=== PATIENT | female | born 1965 | race Caucasian/White ===

== ENCOUNTER 2018-08-11 09:39 | Day surgery (SDC) | payer BC ==
[~2018-08-11] VITALS: Ht 160 cm; Wt 69.3 kg
[2018-08-11] VITALS (12 sets, daily range): BP systolic 119–163; BP diastolic 62–90; PULSE 68–80; RESP 14–20; Ht 160 cm; Wt 69.3 kg
--- NOTE | 2018-08-11 05:27 | HPN ---
Date/Time of Note Date/Time of Note DATE: 08/11/18 TIME: 05:27 Interval H&P Admission Note Pt. seen H&P reviewed: No system changes JUAN DANIEL CABALLERO MD Aug 11, 2018 05:27
--- NOTE | 2018-08-11 05:29 | OPR ---
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 Assistance was necessary as a result of the highly technical nature of this operation. When performing an open total shoulder replacement, it is critical to have a trained staff assistant who is an expert in handling the extremity and assisting the surgeon in tasks such as manipulation of the arm, protection of the neurovascular structures and positioning the implants. This assistance cannot be performed by a network operations center technician, as it is considered an integral part of the procedure and the staff assistant should be compensated for his time. PROCEDURE IN DETAIL: Following the administration of general anesthesia supplemented with a peripheral nerve block for postoperative pain control, the patient was examined under anesthesia. Examination of the right shoulder revealed that her range of motion was slightly restricted with a forward flexion of about 100 degrees and abduction of 90 degrees. The patient was then placed in the beach chair position. Sterile prep and drape was then undertaken. An extended deltopectoral incision was then carried t hrough the prior incision exposing the conjoined tendon and retracting it medially. The humeral component was then identified and the joint visualized significant synovitis was noted in the periphery and a small amount of fluid. A culture was obtained of both the fluid in the soft tissue around which appeared to be synovitic. The humeral liner had somewhere inferiorly. This was removed and a new 6 mm, constrained liner was then placed with solid position. The joint was thoroughly irrigated prior to this. It should be mentioned that prior to insertion of the new component, the glenoid was thoroughly investigated and no significant loosening or issues were noted with that portion of the joint. The arm was taken through full range of motion with no evident instability. The joint was then thoroughly irrigated, the deep tissues were approximated using #1 suture followed by closure of the deep layer using 2-0 Monocryl. The skin was closed using 4-0 Monocryl suture, and a Prenio dressing. An Ultrasling was then applied. The patient was awakened and transported to the recovery room in stable condition. Estimated blood loss for this procedure was 50 cc. JUAN DANIEL CABALLERO MD Aug 11, 2018 05:29
[~2018-08-11 09:39] MED LIST: ALEN70TA44 PO; PUMP INSULIN MC
[2018-08-11] MEDS ORDERED: ROCURONIUM 50 MG INJ ONE (10:33)
[2018-08-11] MEDS ORDERED: PROPOFOL 20 ML ONE (10:33)
[2018-08-11] MEDS ORDERED: GLYCOPYRROLATE 0.4 MG INJ ONE (10:33)
[2018-08-11] MEDS ORDERED: ONDANSETRON 4 MG INJ ONE (10:33)
[2018-08-11] MEDS ORDERED: DEXAMETHASONE 4 MG/ML 1 ML INJ ONE (10:33)
[2018-08-11] MEDS ORDERED: CEFAZOLIN 1 GM INJ ONE (10:33)
[2018-08-11] MEDS ORDERED: FENTAnyl 50 MCG/ML VIAL ONE ×2 (10:33→10:54)
[2018-08-11] MEDS ORDERED: ROPIVACAINE 0.5 % 30 ML VIAL ONE (10:33)
[2018-08-11] MEDS ORDERED: NEOSTIGMINE 3 MG/3 ML SYRINGE ONE (10:33)
[2018-08-11] MEDS ORDERED: MIDAZOLAM 1 MG/ML 2 ML INJ ONE (10:33)
[2018-08-11] MEDS ORDERED: TRANEXAMIC ACID 1,000 MG in DEXTROSE 5% 100 ML IVPB ONE (11:00)
[2018-08-11] MEDS ORDERED: CEFAZOLIN 2 GM/50 ML (PMX) 50 ML IVPB ONE (11:00)
[2018-08-11] MEDS ORDERED: GABAPENTIN 300 MG CAP PO ONE (11:00)
[2018-08-11] MEDS ORDERED: BUPIVACAINE 0.5% (SDV) 30 ML, morphine SULFATE (PF) 8 MG, EPINEPHrine 0.3 MG, KETOROLAC... IRR SCH ×7 (11:00)
[2018-08-11] MEDS ORDERED: DEXAMETHASONE 1 MG TAB PO ONE (11:00)
[2018-08-11] MEDS ORDERED: METOCLOPRAMIDE 10 MG INJ ONE (11:11)
[2018-08-11] MEDS ORDERED: CA CHLORIDE 10% 10 ML SYRINGE ONE (11:37)
[2018-08-11] MEDS ORDERED: BUPIVACAINE 0.5% (SDV) 30 ML INJ ONE (11:37)
[2018-08-11] MEDS ORDERED: THROMBIN 5000 UNIT VIAL ONE (11:37)
[2018-08-11] MEDS ORDERED: TOBRAMYCIN 0.3% 3.5 GM OPH OINT ONE (11:37)
[2018-08-11] MEDS ORDERED: POLYMYXIN/BACITRACIN 1L IRRIG ONE (11:37)
--- NOTE | 2018-08-11 11:40 | PREAC ---
Date/Time of Note Date/Time of Note DATE: 08/11/18 TIME: 11:37 Anesthesia Eval and Record Evaluation Time Pre-Procedure Interview DATE: 08/11/18 TIME: 11:37 Age 52 Sex female NPO: 8 hrs Preoperative diagnosis IMPINGEMENT, ADHESIVE CAPSULITIS RIGHT SHOULDER Planned procedure RIGHT REVISION REVERSE TOTAL SHOULDER ARTHROPLASTY Past Medical History Past Medical History: Includes Endo: Diabetes Surgery & Anesthesia Issues No known issue Meds Anticoagulation: No Beta Andres within 24 hr: No Reason Beta Andres not given: Pt. not on B-Andres Reported Medications Alendronate Sodium* (Fosamax*) 70 Mg Tablet, 70 MG PO Q7D, #4 TAB 08/08/16 Insulin* PUMP (Insulin* PUMP) 1 Each Pump.resvr, 1 EACH MC . DIRECTED, EA 08/08/16 Current Medications Bupivacaine HCl/ Morphine Sulfate/ Epinephrine/ Ketorolac Tromethamine/ Clonidine/Sodium Chloride/ Vancomycin HCl INTRA-OP IRR ; Start 08/11/18 at 11:00 Meds reviewed: Yes Allergies Coded Allergies: No Known Allergy (Unverified , 08/08/16) Allergies Reviewed: Yes Labs/Studies Labs Reviewed: Reviewed by anesthesiologist test: N/A Studies: ECG (NL), CXR (NAPD) Pre-procedure Exam Airway: Adequate mouth opening, Adequate thyromental dist Mallampati: Mallampati II Teeth: Normal Lung: Normal Heart: Normal ASA Physical Status ASA physical status: 2 Emergency: None Planned Anesthetic General/MAC: ETT Planned Pain Management Single shot nerve block, Parenteral pain med Pre-operative Attestations Prior to commencing anesthesia and surgery, the patient was re-evaluated, there was verification of: *The patient's identity *The results of appropriate recent lab work and preoperative vital signs *The above evaluation not changing prior to induction *Anesthetic plan, risk benefits, alternative and complications discussed with patient/family; questions answered; patient/family understands, accepts and wishes to proceed. Lisandro Molina M.D. Aug 11, 2018 11:40
--- NOTE | 2018-08-11 11:44 | NUR ---
MADE DR [place] AWARE OF HIGH BLOOD GLUCOSE LEVEL 217, ALSO MADE AWARE OF PATIENT HAVING INSULIN PUMP. ORDERS RECEIVED TO ASK PATIENT TO GIVE HER INSULIN BOLUS USING HER PUMP.
[2018-08-11] MEDS ORDERED: FENTAnyl 50 MCG/ML VIAL IV PRN ×3 (12:00)
[2018-08-11] MEDS ORDERED: OXYCODONE/ACETAMINOPHEN (5/325) TAB PO PRN ×2 (12:00)
[2018-08-11] MEDS ORDERED: LABETALOL HCL 20MG INJ IV PRN (12:00)
[2018-08-11] MEDS ORDERED: hydrALAzine 20 MG INJ IV PRN (12:00)
[2018-08-11] MEDS ORDERED: MEPERIDINE 25 MG INJ IV PRN (12:00)
[2018-08-11] MEDS ORDERED: EPHEDrine SULFATE 50 MG/5 ML SYG IV PRN (12:00)
[2018-08-11] MEDS ORDERED: ONDANSETRON 4 MG INJ IV PRN (12:00)
[2018-08-11] MEDS ORDERED: HYDROmorphONE 1 MG/5 ML IV SYRINGE IV PRN ×3 (12:00)
[2018-08-11] MEDS ORDERED: DIPHENHYDRAMINE 50 MG INJ IV PRN (12:00)
[2018-08-11] MEDS ORDERED: MIDAZOLAM 1 MG/ML 2 ML INJ IV PRN (12:00)
[2018-08-11] MEDS ORDERED: ALBUTEROL 0.083% (NEB) 2.5 MG/3 ML AMP HHN PRN (12:00)
[2018-08-11] MEDS ORDERED: TRIMETHOBENZAMIDE 100 MG/ML VIAL IM PRN (12:00)
[2018-08-11] MEDS ORDERED: IPRATROPIUM (NEB) 0.5 MG/2.5 ML AMP HHN PRN (12:00)
--- NOTE | 2018-08-11 12:36 | PDOCDIS ---
Discharge Instructions DIAGNOSIS Discharge Diagnosis Synovitis right shoulder CONDITION [id number] Patient Condition: Glthf1t Good HOME CARE INSTRUCTIONS: [id number] Diet Instructions: Fgase8u Regular ACTIVITY: Sober6Zk Activity Restrictions: Jrchn8p Slowly Increase Activity Keep Limb Elevated Udirm4Hr Bathing Restrictions: Frich4a Shower FOLLOW UP/APPOINTMENTS Follow-up Plan 2 weeks in the office SCHOOL/WORK RELEASE May return to School/Work with: With Restrictions School/Work Release Comment: 5 pound tabletop usage for 6 weeks JUAN DANIEL CABALLERO MD Aug 11, 2018 12:35
--- NOTE | 2018-08-11 12:57 | PAC ---
Date/Time of Note Date/Time of Note DATE: 08/11/18 TIME: 12:56 Post-Anesthesia Notes Post-Anesthesia Note Last documented vital signs HR:95 RR;13 BP:151/76 SPO2:99% Activity: WNL Respiratory function: WNL Cardiovascular function: WNL Mental status: Baseline Pain reasonably controlled: Yes Hydration appropriate: Yes Nausea/Vomiting absent: Yes Lisandro Molina M.D. Aug 11, 2018 12:57
--- NOTE | 2018-08-11 13:22 | NUR ---
PACU SP RT REVERSE TOTAL SHOULDER REVISION. VSS NO ACUTE RESP DISTRESS NOTED. RT SHOULDER INCISION DERMA OTOOLE/DSG DRY/INTACT. NO ACTIVE BLEEDING OR HEMATOMA NOTED. DENIES PAIN. BS 162, AWARE. COND STABLE. Addendum: 08/11/18 at 1324 by LUIS MOORE RN Amended: Links added.
--- NOTE | 2018-08-11 14:00 | NUR ---
PACU RT SHOULDER REVISION, VSS NO ACUTE RESP DISTRESS NOTED. ICE PK TO RT SHOULDER. PAIN 0/10. IMMOBILIZER APPLIED IN OR. REPORT GIVEN TO SHANTANU YI. Addendum: 08/11/18 at 2159 by LUIS MOORE RN Amended: Links added.
--- NOTE | 2018-08-11 14:15 | NUR ---
PT COMFORTABLE. RUE NUMB FROM BLOCK. NO N/V. TOLERATED PO.
--- NOTE | 2018-08-11 16:36 | NUR ---
STABLE FOR DC. ERIKA STILL FEELS NUMB. RT ARM SLING IN PLACE. RT SHOULDER INCISION SITE WNL.NO BLEEDING, NO SWELLING. VOIDED, ABLE TO AMBULATE.NO N/V.PT SIM HARRIS PICKED UP RX FOR PT AT DR CABALLERO'S OFFICE.
--- NOTE | 2018-08-12 16:13 | RADRPT ---
Vent Rate: 70 bpm RR Interval: 0 msec GA Interval: 138 msec QRS Duration: 84 msec QT Interval: 406 msec QTC Interval: 438 msec P-R-T [place]: 46 - 20 - 35 degrees Normal sinus rhythm Normal ECG Electronically Signed By: Todd Huston [id number]
== END 2018-08-11 16:43 | disposition home or self-care (01) ==
LOC: REC 09:39 → SDS 09:39 → UNDOADMIN 09:39 → EDSTATUS 12:30 → UNDODISIN 16:43 → SDS 16:43
PROVIDERS: ATTEND Orthopaedic Surgery
DX: E11.9 Type 2 diabetes mellitus without complications (principal); T84.098A Other mechanical complication of other internal joint prosthesis, initial encounter; Y79.8 Miscellaneous orthopedic devices associated with adverse incidents, not elsewhere classified
CPT/HCPCS: 23473; 82962; 86850; 86900; 86901; 86999; 87070; 93005; C1776; J0171; J0360; J0690; J0735; J1100; J1885; J2250; J2274; J2405; J2710; J2795; J3010; J3370; J2765